=== PATIENT | female | born 1995 | race Caucasian/White ===

== ENCOUNTER 2019-11-03 23:06 | Emergency (ER) | payer MEDICAID ==
[~2019-11-03] VITALS: Ht 177.8 cm; Wt 63.5 kg
[2019-11-03 23:23] VITALS: BP 144/85
--- NOTE | 2019-11-04 00:17 | NUR ---
Patient discharged to home in stable condition. Written and verbal after care instructions given. Patient verbalizes understanding of instruction. Pt ambulatory with a steady gait
== END 2019-11-04 00:18 | disposition home or self-care (01) ==
LOC: ER 23:11
DX: L73.8 Other specified follicular disorders (principal)